=== PATIENT | male | born 1950 | race Caucasian/White ===

== ENCOUNTER 2022-05-16 10:24 | Outpatient (CLI) | payer MEDICARE, SELFPAY | END 2022-05-16 10:25 | disposition home or self-care (01) | LOC: FRMREF 05-17 14:05 | PROVIDERS: PCP Family Medicine; Visit Provider Family Medicine | DX: Z00.00 Encounter for general adult medical examination without abnormal findings (principal); I10 Essential (primary) hypertension; R97.20 Elevated prostate specific antigen [PSA] | CPT/HCPCS: 82043; 82570 ==

== ENCOUNTER 2022-06-04 13:49 | Outpatient (CLI) | payer MEDICARE, SELFPAY ==
[2022-06-04 14:15] LABS: Chloride* 107 mmol/L (96-114); Potassium* 4.1 mmol/L (3.6-5.1); Sodium* 142 mmol/L (135-149)
[2022-06-04 14:18] LABS: Blood Urea Nitrogen* 19 mg/dL (7-30); Carbon Dioxide* 29 mmol/L (20-32); Creatinine* 0.9 mg/dL (0.5-1.5); Estimated Glomerular Filt Rate 91 ml/min; Glucose* 117 mg/dL (60-115)
[2022-06-04 14:19] LABS: Calcium* 8.9 mg/dL (8.4-10.6)
== END 2022-06-04 13:50 | disposition home or self-care (01) ==
PROVIDERS: PCP Family Medicine; Visit Provider Family Medicine
DX: I10 Essential (primary) hypertension (principal)
CPT/HCPCS: 80048

== ENCOUNTER 2023-05-26 08:02 | Outpatient (CLI) | payer MEDICARE, SELFPAY | END 2023-05-26 08:03 | disposition home or self-care (01) | LOC: NFLDREF 05-27 22:18 | PROVIDERS: PCP Family Medicine; Referring Provider Family Medicine; Visit Provider Family Medicine | DX: E78.5 Hyperlipidemia, unspecified (principal); I10 Essential (primary) hypertension; I25.10 Atherosclerotic heart disease of native coronary artery without angina pectoris; D72.821 Monocytosis (symptomatic); Z12.5 Encounter for screening for malignant neoplasm of prostate | CPT/HCPCS: 80053; 80061; 82043; 82570; 84153 ==

== ENCOUNTER 2023-08-18 07:39 | Outpatient (CLI) | payer MEDICARE, SELFPAY ==
--- NOTE | 2023-08-18 08:28 | P.ANES_ITS ---
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
== END 2023-08-18 07:40 | disposition home or self-care (01) ==
LOC: OP CLINIC 07:40
PROVIDERS: PCP Family Medicine; Visit Provider Internal Medicine
DX: R19.5 Other fecal abnormalities (principal); K63.5 Polyp of colon
CPT/HCPCS: 00811; 45380; 88305; 99100; J2704

== ENCOUNTER 2024-05-31 08:06 | Outpatient (CLI) | payer MEDICARE, SELFPAY | END 2024-05-31 08:07 | disposition home or self-care (01) | LOC: NFLDREF 06-02 13:38 | PROVIDERS: PCP Physician Assistant Medical; Referring Provider Physician Assistant Medical; Visit Provider Physician Assistant Medical | DX: Z00.00 Encounter for general adult medical examination without abnormal findings (principal); I10 Essential (primary) hypertension; E78.5 Hyperlipidemia, unspecified; I25.10 Atherosclerotic heart disease of native coronary artery without angina pectoris; D72.821 Monocytosis (symptomatic); Z12.5 Encounter for screening for malignant neoplasm of prostate | CPT/HCPCS: 80053; 80061; 84443; G0103 ==

== ENCOUNTER 2025-05-30 07:28 | Outpatient (CLI) | payer MEDICARE, SELFPAY | END 2025-05-30 07:29 | disposition home or self-care (01) | LOC: NFLDREF 06-02 06:23 | PROVIDERS: PCP Physician Assistant Medical; Referring Provider Physician Assistant Medical; Visit Provider Physician Assistant Medical | DX: I10 Essential (primary) hypertension (principal); E78.5 Hyperlipidemia, unspecified; R97.20 Elevated prostate specific antigen [PSA] | CPT/HCPCS: 80053; 80061; 84439; 84443; G0103 ==